=== PATIENT | female | born 1965 | race Caucasian/White ===

== ENCOUNTER 2019-09-16 18:20 | Inpatient (IN) | payer MEDICAID ==
[~2019-09-16] VITALS: Ht 162.6 cm; Wt 164.2 kg
[2019-09-16 18:23] VITALS: BP_SYST 164
[2019-09-16] MEDS ORDERED: IPRATROPIUM/ALBUTEROL SULFATE 3 ML AMPUL.NEB (DUONEB) INH ONE (18:30)
[2019-09-16 19:08] LABS: BASOPHILS % (AUTO) 0.3 % (0.0-2.0); EOSINOPHILS % (AUTO) 0.2 % (0.0-4.0); HEMATOCRIT 31.1 % (36-48); HEMOGLOBIN 9.5 g/dL (12.0-16.0); LYMPHOCYTES # (AUTO) 1.3 K/uL (1.0-5.5); LYMPHOCYTES % (AUTO) 12.7 % (20.5-51.5); MEAN CORPUSCULAR HEMOGLOBIN 31 pg (27-31); MEAN CORPUSCULAR HGB CONC 31 % (32-36); MEAN CORPUSCULAR VOLUME 100 fL (79.0-98.0); MONOCYTES # (AUTO) 0.9 K/uL (0.0-1.0); MONOCYTES % (AUTO) 9.1 % (1.7-9.3); NEUTROPHILS # (AUTO) 7.8 K/uL (1.8-7.7); NEUTROPHILS % (AUTO) 77.7 % (40.0-70.0); PLATELET COUNT (AUTO) 215 K/uL (130-430); RED BLOOD CELL COUNT(AUTO) 3.11 MIL/uL (4.2-6.2); RED CELL DISTRIBUTION WIDTH 15.3 % (9.0-15.0)
[2019-09-16] MEDS ORDERED: PIPERACILLIN/TAZO 3.375 GM in NS 50 ML IV ONE (19:15)
[2019-09-16 19:29] LABS: BILIRUBIN,URINE 1+ (NEGATIVE); BLOOD, URINE 3+ (NEGATIVE); CLARITY/URINE CLOUDY (CLEAR); COLOR,URINE BROWN (YELLOW); GLUCOSE,URINE NEGATIVE (NEGATIVE); KETONES,URINE NEGATIVE (NEGATIVE); LEUKOCYTE ESTERASE ,URINE TRACE (NEGATIVE); NITRITE, URINE NEGATIVE (NEGATIVE); PH,URINE 6.5 (5.0-8.0); PROTEIN URINE 3+ (NEGATIVE); UROBILINOGEN,URINE 0.2 (0.2-1.0)
[2019-09-16 19:33] LABS: PROTHROMBIN TIME 9.8 SECS (9.5-12.5)
[2019-09-16 19:34] LABS: CALCIUM 8.2 mg/dL (8.4-11.0); CREATININE 1.98 mg/dL (0.55-1.30)
[2019-09-16 19:40] LABS: ALBUMIN 2.9 g/dL (3.4-4.8); TOTAL BILIRUBIN 0.1 mg/dL (0.0-1.0)
[2019-09-16] MEDS ORDERED: PIPERACILLIN/TAZOBACTAM 3.375 GM/VIAL (ZOSYN) IV ONE ×2 (20:05→20:09)
[2019-09-16 20:35] LABS: BACTERIA,URINE MODERATE /HPF (None Seen); MUCUS,URINE None Seen /LPF (None Seen); RBC,URINE >100 /HPF (0-3); URINE AMORPHOUS URATE 2+ /HPF (None Seen); YEAST,URINE Moderate /HPF (None Seen)
[2019-09-16] MEDS ORDERED: METOCLOPRAMIDE HCL 10 MG/2 ML VIAL IVP PRN (21:15)
[2019-09-16] MEDS ORDERED: ONDANSETRON HCL 4 MG/2 ML VIAL IVP PRN (21:15)
[2019-09-16] MEDS: IPRATROPIUM BROM 0.5 MG/2.5 ML VIAL.NEB (ATROVENT) INH SCH (23:00)
[2019-09-16] MEDS: ALBUTEROL SULFATE 0.083% 2.5 MG/3 ML VIAL.NEB INH SCH (23:00)
[2019-09-16] MEDS ORDERED: GABA-531 PO (23:07)
[2019-09-16] MEDS ORDERED: LEVO75TA7 PO (23:07)
[2019-09-16] MEDS ORDERED: BUDE0.5A IH (23:07)
[2019-09-16] MEDS ORDERED: ACET-73 PO (23:07)
[2019-09-17] VITALS (19 sets, daily range): BP systolic 86–150
[2019-09-17] MEDS: MORPHINE 2 MG/ML INJ. SYRINGE IVP PRN ×2 (00:08→05:06)
[2019-09-17] MEDS: ALBUTEROL SULFATE 0.083% 2.5 MG/3 ML VIAL.NEB INH SCH ×6 (02:30→23:00)
[2019-09-17] MEDS: IPRATROPIUM BROM 0.5 MG/2.5 ML VIAL.NEB (ATROVENT) INH SCH ×6 (02:30→23:00)
[2019-09-17] MEDS: PIPERACILLIN/TAZO 3.375/DEX-IS 50 ML IV SCH ×5 (02:31→23:24)
[2019-09-17] MEDS ORDERED: PIPERACILLIN/TAZOBACTAM 3.375 GM/VIAL (ZOSYN) IV ONE ×2 (02:39→06:23)
[2019-09-17] MEDS ORDERED: LORA10TA7 PO (06:36)
[2019-09-17] MEDS ORDERED: HYDR-4272 PO (06:36)
[2019-09-17] MEDS ORDERED: ASCO500T20 PO (06:36)
[2019-09-17] MEDS ORDERED: CYAN100010 PO (06:36)
[2019-09-17] MEDS ORDERED: POTA20TA83 PO (06:36)
[2019-09-17] MEDS ORDERED: DULO60CA41 PO (06:36)
[2019-09-17] MEDS ORDERED: ALBU2.5V7 INH (06:36)
[2019-09-17] MEDS ORDERED: SENN8.6T19 PO (06:36)
[2019-09-17] MEDS ORDERED: PATANOL OP (06:36)
[2019-09-17] MEDS ORDERED: FURO-149 PO (06:36)
[2019-09-17] MEDS ORDERED: ALPR0.5T PO (06:36)
[2019-09-17] MEDS ORDERED: MOM PO (06:36)
[2019-09-17] MEDS ORDERED: FAMO40OR4 PO (06:36)
[2019-09-17] MEDS ORDERED: LOVI40 SQ (06:36)
[2019-09-17] MEDS ORDERED: ACET500V PO (06:36)
[2019-09-17] MEDS ORDERED: MYL80 PO (06:36)
[2019-09-17] MEDS ORDERED: MELA3TAB64 PO (06:36)
[2019-09-17] MEDS ORDERED: ACETAMINOPHEN 500 MG TABLET PO SCH (09:15)
[2019-09-17] MEDS ORDERED: LEVOTHYROXINE SODIUM 0.075 MG TABLET PO ONE (09:30)
[2019-09-17] MEDS ORDERED: DULoxetine HCL 30 MG CAPSULE.DR (CYMBALTA) PO ONE (09:30)
[2019-09-17] MEDS ORDERED: GABAPENTIN 300 MG CAPSULE PO ONE (09:30)
[2019-09-17] MEDS: DULoxetine HCL 30 MG CAPSULE.DR (CYMBALTA) PO SCH (10:15)
[2019-09-17] MEDS: VANCOMYCIN HCL 1,500 MG in NS 250 ML IV SCH (10:17)
[2019-09-17] MEDS: 0.45% NACL 1,000 ML IV SCH ×2 (10:30→23:12)
[2019-09-17] MEDS ORDERED: ENOXAPARIN SODIUM 120 MG/0.8 ML SYRINGE SUBCUT ONE (13:30)
[2019-09-17] MEDS ORDERED: *LOVENOX 1MG/KG Q24H/PHARMACY XX PRN (15:00)
[2019-09-17] MEDS ORDERED: FUROSEMIDE 40 MG TABLET PO SCH (21:00)
[2019-09-17] MEDS ORDERED: ENOXAPARIN SODIUM 120 MG/0.8 ML SYRINGE SUBCUT SCH (23:00)
[2019-09-17] MEDS: BUDESONIDE 0.5 MG/2 ML AMPUL.NEB IH SCH (23:12)
[2019-09-17] MEDS: GABAPENTIN 300 MG CAPSULE PO SCH (23:16)
[2019-09-18] VITALS (27 sets, daily range): BP systolic 78–154
[2019-09-18] MEDS: ACETAMINOPHEN 325 MG TABLET PO PRN ×2 (00:46→09:31)
[2019-09-18] MEDS: ALBUTEROL SULFATE 0.083% 2.5 MG/3 ML VIAL.NEB INH SCH ×6 (03:00→23:18)
[2019-09-18] MEDS: IPRATROPIUM BROM 0.5 MG/2.5 ML VIAL.NEB (ATROVENT) INH SCH ×6 (03:00→23:18)
[2019-09-18] MEDS ORDERED: NOREPINEPHRINE BITARTRATE 4 MG in NS 246 ML IV PRN (04:30)
[2019-09-18] MEDS ORDERED: NS 500 ML IV SCH (05:00)
[2019-09-18 05:53] LABS: BASOPHILS % (AUTO) 0.3 % (0.0-2.0); EOSINOPHILS % (AUTO) 0.2 % (0.0-4.0); HEMATOCRIT 24.6 % (36-48); HEMOGLOBIN 7.8 g/dL (12.0-16.0); LYMPHOCYTES # (AUTO) 1.3 K/uL (1.0-5.5); LYMPHOCYTES % (AUTO) 16.9 % (20.5-51.5); MEAN CORPUSCULAR HEMOGLOBIN 30 pg (27-31); MEAN CORPUSCULAR HGB CONC 32 % (32-36); MEAN CORPUSCULAR VOLUME 96 fL (79.0-98.0); MONOCYTES # (AUTO) 0.8 K/uL (0.0-1.0); MONOCYTES % (AUTO) 10.5 % (1.7-9.3); NEUTROPHILS # (AUTO) 5.6 K/uL (1.8-7.7); NEUTROPHILS % (AUTO) 72.1 % (40.0-70.0); PLATELET COUNT (AUTO) 169 K/uL (130-430); RED BLOOD CELL COUNT(AUTO) 2.57 MIL/uL (4.2-6.2); RED CELL DISTRIBUTION WIDTH 14.6 % (9.0-15.0); WHITE BLOOD COUNT (AUTO) 7.8 K/uL (4.8-10.8)
[2019-09-18 06:16] LABS: ALBUMIN 2.3 g/dL (3.4-4.8); CREATININE 3.26 mg/dL (0.55-1.30); POTASSIUM 3.3 mmol/L (3.5-5.1); TOTAL BILIRUBIN 0.3 mg/dL (0.0-1.0)
[2019-09-18] MEDS: PIPERACILLIN/TAZO 3.375/DEX-IS 50 ML IV SCH ×3 (07:47→17:40)
[2019-09-18] MEDS: 0.45% NACL 1,000 ML IV SCH ×2 (07:48→14:00)
[2019-09-18] MEDS: BUDESONIDE 0.5 MG/2 ML AMPUL.NEB IH SCH ×2 (08:02→20:08)
[2019-09-18] MEDS ORDERED: ENOXAPARIN SODIUM 80 MG/0.8 ML SYRINGE SUBCUT SCH (09:00)
[2019-09-18] MEDS ORDERED: ENOXAPARIN SODIUM 40 MG/0.4 ML SYRINGE SQ SCH (09:00)
[2019-09-18] MEDS: LEVOTHYROXINE SODIUM 0.075 MG TABLET PO SCH (09:21)
[2019-09-18] MEDS: CYANOCOBALAMIN 1000 mCg TABLET PO SCH (09:21)
[2019-09-18] MEDS: GABAPENTIN 300 MG CAPSULE PO SCH ×2 (09:22→21:00)
[2019-09-18] MEDS: VANCOMYCIN HCL 1,500 MG in NS 250 ML IV SCH (09:23)
[2019-09-18] MEDS ORDERED: *HEPARIN PER PHARMACY XX PRN (09:30)
[2019-09-18] MEDS ORDERED: HEPARIN SODIUM,PORCINE 5000 UNITS/ML VIAL IV ONE (10:30)
[2019-09-18] MEDS ORDERED: HEPARIN SODIUM,PORCINE 3000 UNITS/0.6 ML BOLUS IVP PRN (10:30)
[2019-09-18] MEDS: HEPARIN 25,000 UNITS in 250 ML PREMIX IV PRN (13:52)
[2019-09-18] MEDS: MORPHINE 2 MG/ML INJ. SYRINGE IVP PRN (16:50)
[2019-09-19] VITALS (29 sets, daily range): BP systolic 96–158
[2019-09-19] MEDS: 0.45% NACL 1,000 ML IV SCH ×4 (00:27→23:53)
[2019-09-19] MEDS: PIPERACILLIN/TAZO 3.375/DEX-IS 50 ML IV SCH ×5 (00:29→23:53)
[2019-09-19 05:59] LABS: BASOPHILS % (AUTO) 0.3 % (0.0-2.0); EOSINOPHILS % (AUTO) 0.1 % (0.0-4.0); HEMATOCRIT 22.5 % (36-48); HEMOGLOBIN 7.2 g/dL (12.0-16.0); LYMPHOCYTES # (AUTO) 1.8 K/uL (1.0-5.5); MONOCYTES # (AUTO) 0.6 K/uL (0.0-1.0); MONOCYTES % (AUTO) 8.6 % (1.7-9.3); NEUTROPHILS # (AUTO) 4.5 K/uL (1.8-7.7); RED CELL DISTRIBUTION WIDTH 14.7 % (9.0-15.0); WHITE BLOOD COUNT (AUTO) 6.9 K/uL (4.8-10.8)
[2019-09-19 06:25] LABS: LYMPHOCYTES % (AUTO) 26.2 % (20.5-51.5); MEAN CORPUSCULAR HEMOGLOBIN 31 pg (27-31); MEAN CORPUSCULAR HGB CONC 32 % (32-36); MEAN CORPUSCULAR VOLUME 96 fL (79.0-98.0); NEUTROPHILS % (AUTO) 64.8 % (40.0-70.0); PLATELET COUNT (AUTO) 149 K/uL (130-430); RED BLOOD CELL COUNT(AUTO) 2.36 MIL/uL (4.2-6.2)
[2019-09-19 06:42] LABS: ALBUMIN 2.1 g/dL (3.4-4.8); CREATININE 4.44 mg/dL (0.55-1.30); POTASSIUM 3.2 mmol/L (3.5-5.1); TOTAL BILIRUBIN 0.4 mg/dL (0.0-1.0)
[2019-09-19 06:47] LABS: CALCIUM 6.4 mg/dL (8.4-11.0)
[2019-09-19] MEDS: IPRATROPIUM BROM 0.5 MG/2.5 ML VIAL.NEB (ATROVENT) INH SCH ×5 (08:02→23:13)
[2019-09-19] MEDS: ALBUTEROL SULFATE 0.083% 2.5 MG/3 ML VIAL.NEB INH SCH ×5 (08:02→23:13)
[2019-09-19] MEDS: BUDESONIDE 0.5 MG/2 ML AMPUL.NEB IH SCH ×2 (08:30→20:22)
[2019-09-19] MEDS: CYANOCOBALAMIN 1000 mCg TABLET PO SCH (08:43)
[2019-09-19] MEDS: LEVOTHYROXINE SODIUM 0.075 MG TABLET PO SCH (08:44)
[2019-09-19] MEDS: GABAPENTIN 300 MG CAPSULE PO SCH ×2 (08:44→21:09)
[2019-09-19] MEDS: DULoxetine HCL 30 MG CAPSULE.DR (CYMBALTA) PO SCH (08:44)
[2019-09-19] MEDS: MORPHINE 2 MG/ML INJ. SYRINGE IVP PRN ×2 (08:45→21:09)
[2019-09-19] MEDS ORDERED: POTASSIUM CHLORIDE 20 MEQ in NS 250 ML IV ONE (10:00)
[2019-09-19] MEDS ORDERED: VANCOMYCIN HCL 1,250 MG in NS 250 ML IV SCH (10:00)
[2019-09-19] MEDS ORDERED: methylPREDNISolone SOD SUCC 40 MG/ML VIAL IVP ONE (10:00)
[2019-09-19] MEDS: HEPARIN 25,000 UNITS in 250 ML PREMIX IV PRN (13:51)
[2019-09-19] MEDS: IPRATROPIUM BROM 0.5 MG/2.5 ML VIAL.NEB (ATROVENT) INH PRN (17:21)
[2019-09-19] MEDS: ALBUTEROL SULFATE 0.083% 2.5 MG/3 ML VIAL.NEB INH PRN (17:21)
[2019-09-19] MEDS ORDERED: CALCIUM GLUCONATE 1 GM in NS 100 ML IV ONE (20:15)
[2019-09-19] MEDS ORDERED: CALCIUM GLUCONATE 1 GM/10 ML VIAL ONE (21:00)
[2019-09-20] VITALS (20 sets, daily range): BP systolic 111–145
[2019-09-20] MEDS: ALBUTEROL SULFATE 0.083% 2.5 MG/3 ML VIAL.NEB INH SCH ×7 (04:07→23:00)
[2019-09-20] MEDS: IPRATROPIUM BROM 0.5 MG/2.5 ML VIAL.NEB (ATROVENT) INH SCH ×7 (04:08→23:00)
[2019-09-20] MEDS: LEVOTHYROXINE SODIUM 0.075 MG TABLET PO SCH (06:29)
[2019-09-20] MEDS: PIPERACILLIN/TAZO 3.375/DEX-IS 50 ML IV SCH ×4 (06:29→23:55)
[2019-09-20 06:35] LABS: BASOPHILS % (AUTO) 0.2 % (0.0-2.0); LYMPHOCYTES # (AUTO) 1.5 K/uL (1.0-5.5); LYMPHOCYTES % (AUTO) 15.8 % (20.5-51.5); MEAN CORPUSCULAR HEMOGLOBIN 31 pg (27-31); MEAN CORPUSCULAR HGB CONC 32 % (32-36); MEAN CORPUSCULAR VOLUME 96 fL (79.0-98.0); MONOCYTES # (AUTO) 0.9 K/uL (0.0-1.0); MONOCYTES % (AUTO) 9.6 % (1.7-9.3); NEUTROPHILS % (AUTO) 74.4 % (40.0-70.0); PLATELET COUNT (AUTO) 150 K/uL (130-430); RED BLOOD CELL COUNT(AUTO) 2.61 MIL/uL (4.2-6.2); RED CELL DISTRIBUTION WIDTH 14.6 % (9.0-15.0); WHITE BLOOD COUNT (AUTO) 9.4 K/uL (4.8-10.8)
[2019-09-20 06:55] LABS: ALBUMIN 2.2 g/dL (3.4-4.8); CREATININE 5.27 mg/dL (0.55-1.30); POTASSIUM 3.8 mmol/L (3.5-5.1); TOTAL BILIRUBIN 0.4 mg/dL (0.0-1.0)
[2019-09-20 07:05] LABS: CALCIUM 6.8 mg/dL (8.4-11.0)
[2019-09-20] MEDS: 0.45% NACL 1,000 ML IV SCH ×2 (08:00→18:45)
[2019-09-20] MEDS: BUDESONIDE 0.5 MG/2 ML AMPUL.NEB IH SCH ×2 (08:08→19:52)
[2019-09-20 08:15] LABS: TOTAL IRON BIND. CAPACITY 164 ug/dL (250-450)
[2019-09-20] MEDS ORDERED: CALCIUM GLUCONATE 2 GM in NS 100 ML IV ONE (08:15)
[2019-09-20] MEDS: GABAPENTIN 300 MG CAPSULE PO SCH ×2 (10:18→20:43)
[2019-09-20] MEDS: CYANOCOBALAMIN 1000 mCg TABLET PO SCH (10:18)
[2019-09-20] MEDS: DULoxetine HCL 30 MG CAPSULE.DR (CYMBALTA) PO SCH (10:18)
[2019-09-20] MEDS: MORPHINE 2 MG/ML INJ. SYRINGE IVP PRN ×2 (11:40→20:45)
[2019-09-20] MEDS: EPOETIN ALFA 10,000 UNITS/ML VIAL SUBCUT SCH (18:42)
[2019-09-20] MEDS: HEPARIN 25,000 UNITS in 250 ML PREMIX IV PRN (18:44)
[2019-09-21] VITALS: BP_SYST 128
[2019-09-21] MEDS: HEPARIN SODIUM,PORCINE 2000 UNITS/0.4 ML BOLUS IVP PRN (00:17)
[2019-09-21] MEDS: HEPARIN 25,000 UNITS in 250 ML PREMIX IV PRN ×2 (00:22→00:26)
[2019-09-21] MEDS: MORPHINE 2 MG/ML INJ. SYRINGE IVP PRN ×2 (00:23→06:09)
[2019-09-21] MEDS: ALBUTEROL SULFATE 0.083% 2.5 MG/3 ML VIAL.NEB INH SCH ×6 (03:00→23:30)
[2019-09-21] MEDS: IPRATROPIUM BROM 0.5 MG/2.5 ML VIAL.NEB (ATROVENT) INH SCH ×6 (03:00→23:31)
[2019-09-21] MEDS: 0.45% NACL 1,000 ML IV SCH ×4 (06:09→22:15)
[2019-09-21] MEDS: LEVOTHYROXINE SODIUM 0.075 MG TABLET PO SCH (06:10)
[2019-09-21] MEDS: PIPERACILLIN/TAZO 3.375/DEX-IS 50 ML IV SCH ×4 (06:12→23:37)
[2019-09-21] MEDS: BUDESONIDE 0.5 MG/2 ML AMPUL.NEB IH SCH ×2 (07:32→19:55)
[2019-09-21 07:48] LABS: BASOPHILS % (AUTO) 0.3 % (0.0-2.0); EOSINOPHILS % (AUTO) 0.2 % (0.0-4.0); HEMATOCRIT 24.1 % (36-48); HEMOGLOBIN 7.7 g/dL (12.0-16.0); LYMPHOCYTES # (AUTO) 2.8 K/uL (1.0-5.5); LYMPHOCYTES % (AUTO) 41.4 % (20.5-51.5); MEAN CORPUSCULAR HEMOGLOBIN 31 pg (27-31); MEAN CORPUSCULAR HGB CONC 32 % (32-36); MEAN CORPUSCULAR VOLUME 97 fL (79.0-98.0); MONOCYTES # (AUTO) 0.6 K/uL (0.0-1.0); MONOCYTES % (AUTO) 9.2 % (1.7-9.3); NEUTROPHILS # (AUTO) 3.3 K/uL (1.8-7.7); NEUTROPHILS % (AUTO) 48.9 % (40.0-70.0); PLATELET COUNT (AUTO) 141 K/uL (130-430); RED CELL DISTRIBUTION WIDTH 14.7 % (9.0-15.0); WHITE BLOOD COUNT (AUTO) 6.8 K/uL (4.8-10.8)
[2019-09-21 08:11] LABS: ALBUMIN 2.1 g/dL (3.4-4.8); CALCIUM 7.5 mg/dL (8.4-11.0); CREATININE 5.53 mg/dL (0.55-1.30); TOTAL BILIRUBIN 0.4 mg/dL (0.0-1.0)
[2019-09-21 08:47] LABS: POTASSIUM 4.3 mmol/L (3.5-5.1)
[2019-09-21] MEDS ORDERED: COMMUNICATION ORDER XX ONE ×2 (09:30→12:00)
[2019-09-21] MEDS ORDERED: VANCOMYCIN HCL 1,500 MG in NS 250 ML IV SCH (10:00)
[2019-09-21] MEDS ORDERED: LIDOCAINE 1% 10 MG/ML, 20 ML MDV ONE (11:00)
[2019-09-21] MEDS ORDERED: NS IRRIG SOLN 1000 ML IR ONE (11:00)
[2019-09-21] MEDS ORDERED: fentaNYL CITRATE/PF 100 MCG/2 ML AMP IVP PRN ×2 (11:00)
[2019-09-21] MEDS ORDERED: CEFAZOLIN 2 GM IVPB PREMIX 50 ML IV ONE (11:00)
[2019-09-21] MEDS ORDERED: MIDAZOLAM HCL 5 MG/ML VIAL (VERSED) IV ONE (11:00)
[2019-09-21] MEDS ORDERED: 0.45% NACL 1,000 ML BAG IV ONE (11:00)
[2019-09-21] MEDS ORDERED: PROPOFOL 200MG/ 20ML VIAL (DIPRIVAN) IV ONE (11:00)
[2019-09-21] MEDS ORDERED: NS 100 ML BAG ONE (11:00)
[2019-09-21 13:00] VITALS: BP_SYST 145
[2019-09-21 15:43] VITALS: BP_SYST 151
[2019-09-21] MEDS: CYANOCOBALAMIN 1000 mCg TABLET PO SCH (17:11)
[2019-09-21] MEDS: DULoxetine HCL 30 MG CAPSULE.DR (CYMBALTA) PO SCH (17:11)
[2019-09-21] MEDS: GABAPENTIN 300 MG CAPSULE PO SCH ×2 (17:11→22:11)
[2019-09-21 20:00] VITALS: BP_SYST 105
[2019-09-22] MEDS: HEPARIN 25,000 UNITS in 250 ML PREMIX IV PRN ×2 (00:34→21:19)
[2019-09-22] MEDS: HEPARIN SODIUM,PORCINE 2000 UNITS/0.4 ML BOLUS IVP PRN (00:35)
[2019-09-22] MEDS: ALBUTEROL SULFATE 0.083% 2.5 MG/3 ML VIAL.NEB INH SCH ×6 (02:10→23:12)
[2019-09-22] MEDS: IPRATROPIUM BROM 0.5 MG/2.5 ML VIAL.NEB (ATROVENT) INH SCH ×6 (02:10→23:12)
[2019-09-22 02:15] VITALS: BP_SYST 96
[2019-09-22] MEDS: LEVOTHYROXINE SODIUM 0.075 MG TABLET PO SCH (06:43)
[2019-09-22] MEDS: PIPERACILLIN/TAZO 3.375/DEX-IS 50 ML IV SCH ×3 (06:43→21:12)
[2019-09-22] MEDS: 0.45% NACL 1,000 ML IV SCH ×2 (06:48→15:52)
[2019-09-22] MEDS: BUDESONIDE 0.5 MG/2 ML AMPUL.NEB IH SCH ×2 (07:32→20:08)
[2019-09-22 08:12] LABS: BASOPHILS % (AUTO) 0.3 % (0.0-2.0); EOSINOPHILS % (AUTO) 0.3 % (0.0-4.0); HEMOGLOBIN 8.2 g/dL (12.0-16.0); LYMPHOCYTES # (AUTO) 3.7 K/uL (1.0-5.5); LYMPHOCYTES % (AUTO) 43.4 % (20.5-51.5); MEAN CORPUSCULAR HEMOGLOBIN 30 pg (27-31); MEAN CORPUSCULAR HGB CONC 31 % (32-36); MEAN CORPUSCULAR VOLUME 97 fL (79.0-98.0); MONOCYTES # (AUTO) 0.9 K/uL (0.0-1.0); MONOCYTES % (AUTO) 10.2 % (1.7-9.3); NEUTROPHILS # (AUTO) 3.9 K/uL (1.8-7.7); NEUTROPHILS % (AUTO) 45.8 % (40.0-70.0); PLATELET COUNT (AUTO) 161 K/uL (130-430); RED BLOOD CELL COUNT(AUTO) 2.69 MIL/uL (4.2-6.2); WHITE BLOOD COUNT (AUTO) 8.5 K/uL (4.8-10.8)
[2019-09-22 08:30] LABS: CALCIUM 7.1 mg/dL (8.4-11.0); CREATININE 6.02 mg/dL (0.55-1.30); PHOSPHORUS 6.1 mg/dL (2.7-4.5); POTASSIUM 3.7 mmol/L (3.5-5.1); VANCOMYCIN,RANDOM 26.5 ug/mL
[2019-09-22] MEDS: DULoxetine HCL 30 MG CAPSULE.DR (CYMBALTA) PO SCH (09:39)
[2019-09-22] MEDS: CYANOCOBALAMIN 1000 mCg TABLET PO SCH (09:39)
[2019-09-22] MEDS: GABAPENTIN 300 MG CAPSULE PO SCH ×2 (09:39→21:12)
[2019-09-22 10:31] LABS: ERYTHROCYTE SEDIMENTATION RATE 86 MM/HR (0-20)
[2019-09-22 12:02] VITALS: BP_SYST 116
[2019-09-22 16:00] VITALS: BP_SYST 120
[2019-09-22] MEDS ORDERED: COMMUNICATION ORDER XX ONE (18:30)
[2019-09-22] MEDS ORDERED: HEPARIN SODIUM,PORCINE 5000 UNITS/ML VIAL MC PRN ×2 (18:45)
[2019-09-22 20:03] VITALS: BP_SYST 127
[2019-09-23] VITALS (7 sets, daily range): BP systolic 120–146
[2019-09-23] MEDS: PIPERACILLIN/TAZO 3.375/DEX-IS 50 ML IV SCH ×3 (00:48→12:00)
[2019-09-23] MEDS: 0.45% NACL 1,000 ML IV SCH ×3 (00:48→16:30)
[2019-09-23] MEDS: ALBUTEROL SULFATE 0.083% 2.5 MG/3 ML VIAL.NEB INH SCH ×5 (03:39→19:40)
[2019-09-23] MEDS: IPRATROPIUM BROM 0.5 MG/2.5 ML VIAL.NEB (ATROVENT) INH SCH ×5 (03:40→19:40)
[2019-09-23] MEDS: LEVOTHYROXINE SODIUM 0.075 MG TABLET PO SCH (06:22)
[2019-09-23 07:50] LABS: BASOPHILS % (AUTO) 0.3 % (0.0-2.0); EOSINOPHILS % (AUTO) 0.6 % (0.0-4.0); HEMATOCRIT 24.6 % (36-48); HEMOGLOBIN 7.7 g/dL (12.0-16.0); LYMPHOCYTES # (AUTO) 2.5 K/uL (1.0-5.5); LYMPHOCYTES % (AUTO) 32.5 % (20.5-51.5); MEAN CORPUSCULAR HEMOGLOBIN 30 pg (27-31); MEAN CORPUSCULAR HGB CONC 31 % (32-36); MEAN CORPUSCULAR VOLUME 96 fL (79.0-98.0); MONOCYTES # (AUTO) 0.6 K/uL (0.0-1.0); MONOCYTES % (AUTO) 8.4 % (1.7-9.3); NEUTROPHILS # (AUTO) 4.4 K/uL (1.8-7.7); NEUTROPHILS % (AUTO) 58.2 % (40.0-70.0); PLATELET COUNT (AUTO) 174 K/uL (130-430); RED BLOOD CELL COUNT(AUTO) 2.57 MIL/uL (4.2-6.2); WHITE BLOOD COUNT (AUTO) 7.6 K/uL (4.8-10.8)
[2019-09-23] MEDS: BUDESONIDE 0.5 MG/2 ML AMPUL.NEB IH SCH ×2 (08:02→19:40)
[2019-09-23 08:55] LABS: ERYTHROCYTE SEDIMENTATION RATE 73 MM/HR (0-20)
[2019-09-23 10:14] LABS: ALBUMIN 2.2 g/dL (3.4-4.8); CREATININE 4.79 mg/dL (0.55-1.30); PHOSPHORUS 4.7 mg/dL (2.7-4.5); POTASSIUM 3.4 mmol/L (3.5-5.1); THYROID STIMULATING HORMONE 4.04 uIu/mL (0.36-3.74); TOTAL BILIRUBIN 0.4 mg/dL (0.0-1.0)
[2019-09-23 10:16] LABS: CALCIUM 6.9 mg/dL (8.4-11.0)
[2019-09-23] MEDS: GABAPENTIN 300 MG CAPSULE PO SCH ×2 (10:20→20:38)
[2019-09-23] MEDS: DULoxetine HCL 30 MG CAPSULE.DR (CYMBALTA) PO SCH (10:20)
[2019-09-23] MEDS: CYANOCOBALAMIN 1000 mCg TABLET PO SCH (10:20)
[2019-09-23] MEDS: HEPARIN 25,000 UNITS in 250 ML PREMIX IV PRN ×2 (10:23→18:38)
[2019-09-23 10:30] LABS: C-REACTIVE PROTEIN QUANT 2.2 mg/dL (0-0.5); VANCOMYCIN,RANDOM 18.3 ug/mL
[2019-09-23] MEDS ORDERED: HEPARIN SODIUM,PORCINE 5000 UNITS/ML VIAL IVP ONE (17:00)
[2019-09-23] MEDS ORDERED: WARFARIN SODIUM 5 MG TABLET PO SCH (18:00)
[2019-09-23] MEDS: HEPARIN SODIUM,PORCINE 2000 UNITS/0.4 ML BOLUS IVP PRN (18:35)
[2019-09-23] MEDS: EPOETIN ALFA 10,000 UNITS/ML VIAL SUBCUT SCH (19:49)
[2019-09-24] VITALS: BP_SYST 127
[2019-09-24] MEDS: HEPARIN 25,000 UNITS in 250 ML PREMIX IV PRN ×2 (02:12→12:47)
[2019-09-24] MEDS: 0.45% NACL 1,000 ML IV SCH ×2 (02:36→23:43)
[2019-09-24] MEDS: IPRATROPIUM BROM 0.5 MG/2.5 ML VIAL.NEB (ATROVENT) INH SCH ×6 (03:00→23:00)
[2019-09-24] MEDS: ALBUTEROL SULFATE 0.083% 2.5 MG/3 ML VIAL.NEB INH SCH ×6 (03:00→23:00)
[2019-09-24] MEDS: LEVOTHYROXINE SODIUM 0.075 MG TABLET PO SCH (06:22)
[2019-09-24 07:20] LABS: BASOPHILS % (AUTO) 0.2 % (0.0-2.0); EOSINOPHILS # (AUTO) 0.1 K/uL (0.0-0.4); HEMATOCRIT 24.9 % (36-48); HEMOGLOBIN 7.9 g/dL (12.0-16.0); LYMPHOCYTES # (AUTO) 2.6 K/uL (1.0-5.5); LYMPHOCYTES % (AUTO) 32.2 % (20.5-51.5); MEAN CORPUSCULAR HEMOGLOBIN 30 pg (27-31); MEAN CORPUSCULAR HGB CONC 32 % (32-36); MEAN CORPUSCULAR VOLUME 95 fL (79.0-98.0); MONOCYTES # (AUTO) 0.8 K/uL (0.0-1.0); MONOCYTES % (AUTO) 9.9 % (1.7-9.3); NEUTROPHILS # (AUTO) 4.5 K/uL (1.8-7.7); NEUTROPHILS % (AUTO) 56.7 % (40.0-70.0); PLATELET COUNT (AUTO) 208 K/uL (130-430); RED BLOOD CELL COUNT(AUTO) 2.61 MIL/uL (4.2-6.2); WHITE BLOOD COUNT (AUTO) 7.9 K/uL (4.8-10.8)
[2019-09-24 07:43] LABS: INR 1.1 (0.8-1.2)
[2019-09-24 07:45] VITALS: BP_SYST 155
[2019-09-24] MEDS: BUDESONIDE 0.5 MG/2 ML AMPUL.NEB IH SCH ×2 (07:47→19:52)
[2019-09-24 08:26] LABS: CALCIUM 7.8 mg/dL (8.4-11.0); CREATININE 3.59 mg/dL (0.55-1.30); POTASSIUM 3.3 mmol/L (3.5-5.1); VANCOMYCIN,RANDOM 13.2 ug/mL
[2019-09-24] MEDS: DULoxetine HCL 30 MG CAPSULE.DR (CYMBALTA) PO SCH (08:43)
[2019-09-24] MEDS: CYANOCOBALAMIN 1000 mCg TABLET PO SCH (08:44)
[2019-09-24] MEDS: GABAPENTIN 300 MG CAPSULE PO SCH ×2 (08:44→20:26)
[2019-09-24] MEDS ORDERED: POTASSIUM CHLORIDE 20 MEQ/PKT PACKET PO ONE (09:15)
[2019-09-24 11:46] VITALS: BP_SYST 123
[2019-09-24] MEDS ORDERED: VANCOMYCIN HCL 1,500 MG in NS 250 ML IV SCH (13:00)
[2019-09-24] MEDS: WARFARIN SODIUM 7.5 MG TABLET PO SCH (18:06)
[2019-09-24 20:00] VITALS: BP_SYST 146
[2019-09-25] MEDS: HEPARIN 25,000 UNITS in 250 ML PREMIX IV PRN ×2 (00:52→17:42)
[2019-09-25 01:05] VITALS: BP_SYST 144
[2019-09-25] MEDS: IPRATROPIUM BROM 0.5 MG/2.5 ML VIAL.NEB (ATROVENT) INH SCH ×3 (03:00→21:56)
[2019-09-25] MEDS: ALBUTEROL SULFATE 0.083% 2.5 MG/3 ML VIAL.NEB INH SCH ×3 (03:00→21:56)
[2019-09-25] MEDS: LEVOTHYROXINE SODIUM 0.075 MG TABLET PO SCH (06:05)
[2019-09-25 07:22] LABS: BASOPHILS # (AUTO) 0.1 K/uL (0.0-0.2); BASOPHILS % (AUTO) 0.6 % (0.0-2.0); EOSINOPHILS # (AUTO) 0.1 K/uL (0.0-0.4); EOSINOPHILS % (AUTO) 1.4 % (0.0-4.0); HEMATOCRIT 26.6 % (36-48); HEMOGLOBIN 8.2 g/dL (12.0-16.0); LYMPHOCYTES # (AUTO) 2.6 K/uL (1.0-5.5); LYMPHOCYTES % (AUTO) 25.7 % (20.5-51.5); MEAN CORPUSCULAR HEMOGLOBIN 30 pg (27-31); MEAN CORPUSCULAR HGB CONC 31 % (32-36); MEAN CORPUSCULAR VOLUME 97 fL (79.0-98.0); MONOCYTES % (AUTO) 10.4 % (1.7-9.3); NEUTROPHILS # (AUTO) 6.2 K/uL (1.8-7.7); NEUTROPHILS % (AUTO) 61.9 % (40.0-70.0); PLATELET COUNT (AUTO) 268 K/uL (130-430); RED BLOOD CELL COUNT(AUTO) 2.74 MIL/uL (4.2-6.2); RED CELL DISTRIBUTION WIDTH 15.2 % (9.0-15.0)
[2019-09-25 07:31] LABS: INR 1.3 (0.8-1.2); PROTHROMBIN TIME 12.8 SECS (9.5-12.5)
[2019-09-25 07:44] LABS: ALBUMIN 2.3 g/dL (3.4-4.8); CALCIUM 7.8 mg/dL (8.4-11.0); CREATININE 4.35 mg/dL (0.55-1.30); POTASSIUM 3.3 mmol/L (3.5-5.1); TOTAL BILIRUBIN 0.3 mg/dL (0.0-1.0)
[2019-09-25] MEDS: BUDESONIDE 0.5 MG/2 ML AMPUL.NEB IH SCH ×2 (08:12→22:23)
[2019-09-25 09:06] LABS: HEPATITIS A AB, IgM Negative (Negative); HEPATITIS B CORE AB, IgM Negative (Negative); HEPATITIS B SURFACE AG Negative (Negative)
[2019-09-25 12:00] VITALS: BP_SYST 170
[2019-09-25] MEDS: DULoxetine HCL 30 MG CAPSULE.DR (CYMBALTA) PO SCH (14:09)
[2019-09-25] MEDS: CYANOCOBALAMIN 1000 mCg TABLET PO SCH (14:09)
[2019-09-25] MEDS: GABAPENTIN 300 MG CAPSULE PO SCH ×2 (14:09→22:03)
[2019-09-25 15:16] VITALS: BP_SYST 150
[2019-09-25] MEDS: WARFARIN SODIUM 7.5 MG TABLET PO SCH (17:38)
[2019-09-25 20:00] VITALS: BP_SYST 127
[2019-09-25] MEDS ORDERED: HEPARIN SODIUM,PORCINE 5000 UNITS/ML VIAL IVP ONE (20:00)
[2019-09-25] MEDS: EPOETIN ALFA 10,000 UNITS/ML VIAL SUBCUT SCH (22:04)
[2019-09-26] VITALS: BP_SYST 146
[2019-09-26] MEDS: HEPARIN 25,000 UNITS in 250 ML PREMIX IV PRN ×2 (00:21→09:50)
[2019-09-26] MEDS: LEVOTHYROXINE SODIUM 0.075 MG TABLET PO SCH (06:09)
[2019-09-26] MEDS: 0.45% NACL 1,000 ML IV SCH (06:12)
[2019-09-26] MEDS: ALBUTEROL SULFATE 0.083% 2.5 MG/3 ML VIAL.NEB INH SCH ×5 (06:49→23:14)
[2019-09-26] MEDS: IPRATROPIUM BROM 0.5 MG/2.5 ML VIAL.NEB (ATROVENT) INH SCH ×5 (06:49→23:14)
[2019-09-26] MEDS: BUDESONIDE 0.5 MG/2 ML AMPUL.NEB IH SCH ×2 (07:06→19:38)
[2019-09-26 07:37] LABS: INR 2.1 (0.8-1.2)
[2019-09-26 07:53] LABS: ALBUMIN 2.2 g/dL (3.4-4.8); CALCIUM 7.3 mg/dL (8.4-11.0); CREATININE 3.34 mg/dL (0.55-1.30); POTASSIUM 3.1 mmol/L (3.5-5.1); TOTAL BILIRUBIN 0.2 mg/dL (0.0-1.0)
[2019-09-26 08:02] LABS: HEMATOCRIT 24.9 % (36-48); HEMOGLOBIN 7.8 g/dL (12.0-16.0); MEAN CORPUSCULAR HEMOGLOBIN 30 pg (27-31); MEAN CORPUSCULAR HGB CONC 31 % (32-36); MEAN CORPUSCULAR VOLUME 96 fL (79.0-98.0); PLATELET COUNT (AUTO) 294 K/uL (130-430); RED BLOOD CELL COUNT(AUTO) 2.58 MIL/uL (4.2-6.2); RED CELL DISTRIBUTION WIDTH 15.2 % (9.0-15.0); WHITE BLOOD COUNT (AUTO) 11.3 K/uL (4.8-10.8)
[2019-09-26 08:15] LABS: PROTHROMBIN TIME 20.5 SECS (9.5-12.5)
[2019-09-26 08:30] VITALS: BP_SYST 141
[2019-09-26 08:39] LABS: ATYPICAL LYMPHOCYTES % 0 % (0-0); BAND % (MANUAL) 2 % (0-6); BASOPHILS % (MANUAL) 0 % (0-2); EOSINOPHILS % (MANUAL) 1 % (0-7); LYMPHOCYTES % (MANUAL) 18 % (20-46); METAMYELOCYTES % 2 % (0-0); MONOCYTES % (MANUAL) 2 % (0-11); MYELOCYTES % 1 % (0-0)
[2019-09-26] MEDS: DULoxetine HCL 30 MG CAPSULE.DR (CYMBALTA) PO SCH (08:50)
[2019-09-26] MEDS: GABAPENTIN 300 MG CAPSULE PO SCH ×2 (08:50→20:28)
[2019-09-26] MEDS: CYANOCOBALAMIN 1000 mCg TABLET PO SCH (08:50)
[2019-09-26 12:30] VITALS: BP_SYST 147
[2019-09-26 15:15] VITALS: BP_SYST 147
[2019-09-26 16:31] VITALS: BP_SYST 150
[2019-09-26] MEDS ORDERED: POTASSIUM CHLORIDE 20 MEQ TAB.PRT.SR PO ONE (16:45)
[2019-09-26] MEDS: WARFARIN SODIUM 5 MG TABLET PO SCH (17:19)
[2019-09-26 20:00] VITALS: BP_SYST 149
[2019-09-27 00:31] VITALS: BP_SYST 140
[2019-09-27] MEDS: IPRATROPIUM BROM 0.5 MG/2.5 ML VIAL.NEB (ATROVENT) INH SCH ×6 (03:20→23:00)
[2019-09-27] MEDS: ALBUTEROL SULFATE 0.083% 2.5 MG/3 ML VIAL.NEB INH SCH ×6 (03:20→23:00)
[2019-09-27] MEDS: LEVOTHYROXINE SODIUM 0.075 MG TABLET PO SCH (06:25)
[2019-09-27 08:00] VITALS: BP_SYST 167
[2019-09-27 08:11] LABS: BASOPHILS % (AUTO) 0.4 % (0.0-2.0); EOSINOPHILS # (AUTO) 0.2 K/uL (0.0-0.4); EOSINOPHILS % (AUTO) 1.7 % (0.0-4.0); HEMATOCRIT 23.6 % (36-48); HEMOGLOBIN 7.5 g/dL (12.0-16.0); LYMPHOCYTES # (AUTO) 2.3 K/uL (1.0-5.5); LYMPHOCYTES % (AUTO) 21.1 % (20.5-51.5); MEAN CORPUSCULAR HEMOGLOBIN 30 pg (27-31); MEAN CORPUSCULAR HGB CONC 32 % (32-36); MEAN CORPUSCULAR VOLUME 96 fL (79.0-98.0); MONOCYTES # (AUTO) 0.9 K/uL (0.0-1.0); MONOCYTES % (AUTO) 8.3 % (1.7-9.3); NEUTROPHILS # (AUTO) 7.6 K/uL (1.8-7.7); NEUTROPHILS % (AUTO) 68.5 % (40.0-70.0); PLATELET COUNT (AUTO) 305 K/uL (130-430); RED BLOOD CELL COUNT(AUTO) 2.47 MIL/uL (4.2-6.2); RED CELL DISTRIBUTION WIDTH 15.2 % (9.0-15.0); WHITE BLOOD COUNT (AUTO) 11.1 K/uL (4.8-10.8)
[2019-09-27 08:25] LABS: INR 2.3 (0.8-1.2); PROTHROMBIN TIME 23.2 SECS (9.5-12.5)
[2019-09-27 08:27] LABS: ALBUMIN 2.2 g/dL (3.4-4.8); CALCIUM 7.1 mg/dL (8.4-11.0); CREATININE 4.45 mg/dL (0.55-1.30); POTASSIUM 3.3 mmol/L (3.5-5.1); TOTAL BILIRUBIN 0.2 mg/dL (0.0-1.0)
[2019-09-27] MEDS: BUDESONIDE 0.5 MG/2 ML AMPUL.NEB IH SCH ×2 (08:37→19:54)
[2019-09-27] MEDS: GABAPENTIN 300 MG CAPSULE PO SCH ×2 (08:37→20:51)
[2019-09-27] MEDS: CYANOCOBALAMIN 1000 mCg TABLET PO SCH (08:37)
[2019-09-27] MEDS: DULoxetine HCL 30 MG CAPSULE.DR (CYMBALTA) PO SCH (08:37)
[2019-09-27 11:57] VITALS: BP_SYST 179
[2019-09-27] MEDS ORDERED: HEPARIN SODIUM,PORCINE 5000 UNITS/ML VIAL MC PRN (13:00)
[2019-09-27 15:28] VITALS: BP_SYST 133
[2019-09-27] MEDS ORDERED: POTASSIUM CHLORIDE 20 MEQ TAB.PRT.SR PO ONE (16:15)
[2019-09-27] MEDS: cefTRIAXone 1 GM in D5W 50 ML IV SCH (17:57)
[2019-09-27] MEDS: WARFARIN SODIUM 5 MG TABLET PO SCH (17:58)
[2019-09-27] MEDS: EPOETIN ALFA 10,000 UNITS/ML VIAL SUBCUT SCH (17:59)
[2019-09-27 19:45] VITALS: BP_SYST 123
[2019-09-28] VITALS: BP_SYST 120
[2019-09-28] MEDS: LEVOTHYROXINE SODIUM 0.075 MG TABLET PO SCH (06:45)
[2019-09-28 07:07] LABS: BASOPHILS # (AUTO) 0.1 K/uL (0.0-0.2); EOSINOPHILS # (AUTO) 0.1 K/uL (0.0-0.4); EOSINOPHILS % (AUTO) 1.3 % (0.0-4.0); HEMATOCRIT 23.5 % (36-48); HEMOGLOBIN 7.4 g/dL (12.0-16.0); LYMPHOCYTES # (AUTO) 2.5 K/uL (1.0-5.5); MEAN CORPUSCULAR HEMOGLOBIN 30 pg (27-31); MEAN CORPUSCULAR HGB CONC 32 % (32-36); MEAN CORPUSCULAR VOLUME 97 fL (79.0-98.0); MONOCYTES # (AUTO) 1.2 K/uL (0.0-1.0); MONOCYTES % (AUTO) 11.5 % (1.7-9.3); NEUTROPHILS # (AUTO) 6.7 K/uL (1.8-7.7); NEUTROPHILS % (AUTO) 63.2 % (40.0-70.0); PLATELET COUNT (AUTO) 316 K/uL (130-430); RED BLOOD CELL COUNT(AUTO) 2.44 MIL/uL (4.2-6.2); RED CELL DISTRIBUTION WIDTH 15.7 % (9.0-15.0); WHITE BLOOD COUNT (AUTO) 10.7 K/uL (4.8-10.8)
[2019-09-28] MEDS: BUDESONIDE 0.5 MG/2 ML AMPUL.NEB IH SCH ×2 (07:21→20:14)
[2019-09-28] MEDS: IPRATROPIUM BROM 0.5 MG/2.5 ML VIAL.NEB (ATROVENT) INH SCH ×5 (07:21→23:36)
[2019-09-28] MEDS: ALBUTEROL SULFATE 0.083% 2.5 MG/3 ML VIAL.NEB INH SCH ×5 (07:21→23:36)
[2019-09-28 07:29] LABS: INR 1.9 (0.8-1.2); PROTHROMBIN TIME 18.7 SECS (9.5-12.5)
[2019-09-28 08:00] VITALS: BP_SYST 132
[2019-09-28] MEDS: GABAPENTIN 300 MG CAPSULE PO SCH ×2 (08:50→20:59)
[2019-09-28] MEDS: DULoxetine HCL 30 MG CAPSULE.DR (CYMBALTA) PO SCH (08:50)
[2019-09-28] MEDS: CYANOCOBALAMIN 1000 mCg TABLET PO SCH (08:50)
[2019-09-28 11:13] VITALS: BP_SYST 108
[2019-09-28 11:15] VITALS: BP_SYST 147
[2019-09-28] MEDS ORDERED: POTASSIUM CHLORIDE 20 MEQ TAB.PRT.SR PO ONE (11:30)
[2019-09-28 15:09] VITALS: BP_SYST 127
[2019-09-28] MEDS ORDERED: NEPHROVITE, (FOLIC ACID/VITAMIN B COMP W-C 1 TAB) PO ONE (17:15)
[2019-09-28] MEDS: cefTRIAXone 1 GM in D5W 50 ML IV SCH (17:23)
[2019-09-28] MEDS ORDERED: TUBERCULIN,PURIF.PROT.DERIV. 0.1 ML SYR ID ONE (17:30)
[2019-09-28] MEDS ORDERED: WARFARIN SODIUM 6 MG TABLET PO SCH (18:00)
[2019-09-28 20:00] VITALS: BP_SYST 141
[2019-09-29 00:06] VITALS: BP_SYST 143
[2019-09-29] MEDS: IPRATROPIUM BROM 0.5 MG/2.5 ML VIAL.NEB (ATROVENT) INH SCH ×6 (03:00→23:02)
[2019-09-29] MEDS: ALBUTEROL SULFATE 0.083% 2.5 MG/3 ML VIAL.NEB INH SCH ×6 (03:00→23:02)
[2019-09-29] MEDS: LEVOTHYROXINE SODIUM 0.075 MG TABLET PO SCH (06:00)
[2019-09-29 07:53] VITALS: BP_SYST 147
[2019-09-29] MEDS: BUDESONIDE 0.5 MG/2 ML AMPUL.NEB IH SCH ×2 (07:55→19:12)
[2019-09-29 09:03] LABS: INR 1.9 (0.8-1.2)
[2019-09-29] MEDS: DULoxetine HCL 30 MG CAPSULE.DR (CYMBALTA) PO SCH (09:12)
[2019-09-29] MEDS: NEPHROVITE, (FOLIC ACID/VITAMIN B COMP W-C 1 TAB) PO SCH (09:12)
[2019-09-29] MEDS: CYANOCOBALAMIN 1000 mCg TABLET PO SCH (09:12)
[2019-09-29] MEDS: GABAPENTIN 300 MG CAPSULE PO SCH ×2 (09:12→20:19)
[2019-09-29 12:00] VITALS: BP_SYST 158
[2019-09-29 16:00] VITALS: BP_SYST 161
[2019-09-29] MEDS: cefTRIAXone 1 GM in D5W 50 ML IV SCH (17:07)
[2019-09-29] MEDS: WARFARIN SODIUM PO SCH ×2 (17:08)
[2019-09-29] MEDS ORDERED: cloNIDine HCL 0.2 MG TABLET PO PRN (19:00)
[2019-09-29 20:00] VITALS: BP_SYST 156
[2019-09-30 00:30] VITALS: BP_SYST 131
[2019-09-30] MEDS: ALBUTEROL SULFATE 0.083% 2.5 MG/3 ML VIAL.NEB INH SCH ×6 (04:24→23:05)
[2019-09-30] MEDS: IPRATROPIUM BROM 0.5 MG/2.5 ML VIAL.NEB (ATROVENT) INH SCH ×6 (04:24→23:05)
[2019-09-30] MEDS: LEVOTHYROXINE SODIUM 0.075 MG TABLET PO SCH (06:03)
[2019-09-30 07:22] LABS: BASOPHILS % (AUTO) 0.4 % (0.0-2.0); EOSINOPHILS # (AUTO) 0.1 K/uL (0.0-0.4); EOSINOPHILS % (AUTO) 1.4 % (0.0-4.0); HEMATOCRIT 23.3 % (36-48); HEMOGLOBIN 7.3 g/dL (12.0-16.0); LYMPHOCYTES # (AUTO) 2.1 K/uL (1.0-5.5); LYMPHOCYTES % (AUTO) 21.4 % (20.5-51.5); MEAN CORPUSCULAR HEMOGLOBIN 31 pg (27-31); MEAN CORPUSCULAR HGB CONC 31 % (32-36); MEAN CORPUSCULAR VOLUME 97 fL (79.0-98.0); MONOCYTES % (AUTO) 10.2 % (1.7-9.3); NEUTROPHILS # (AUTO) 6.6 K/uL (1.8-7.7); NEUTROPHILS % (AUTO) 66.6 % (40.0-70.0); PLATELET COUNT (AUTO) 275 K/uL (130-430); RED CELL DISTRIBUTION WIDTH 15.7 % (9.0-15.0); WHITE BLOOD COUNT (AUTO) 9.8 K/uL (4.8-10.8)
[2019-09-30 07:29] LABS: PROTHROMBIN TIME 20.1 SECS (9.5-12.5)
[2019-09-30 07:36] LABS: CALCIUM 7.6 mg/dL (8.4-11.0); CREATININE 5.57 mg/dL (0.55-1.30); POTASSIUM 3.8 mmol/L (3.5-5.1)
[2019-09-30 08:00] VITALS: BP_SYST 143
[2019-09-30] MEDS: BUDESONIDE 0.5 MG/2 ML AMPUL.NEB IH SCH ×2 (08:26→19:47)
[2019-09-30] MEDS: GABAPENTIN 300 MG CAPSULE PO SCH ×2 (08:34→21:07)
[2019-09-30] MEDS: CYANOCOBALAMIN 1000 mCg TABLET PO SCH (08:34)
[2019-09-30] MEDS: DULoxetine HCL 30 MG CAPSULE.DR (CYMBALTA) PO SCH (08:34)
[2019-09-30] MEDS: NEPHROVITE, (FOLIC ACID/VITAMIN B COMP W-C 1 TAB) PO SCH (08:34)
[2019-09-30 12:18] VITALS: BP_SYST 153
[2019-09-30 15:07] VITALS: BP_SYST 142
[2019-09-30] MEDS: cefTRIAXone 1 GM in D5W 50 ML IV SCH (17:33)
[2019-09-30] MEDS: EPOETIN ALFA 10,000 UNITS/ML VIAL SUBCUT SCH (17:34)
[2019-09-30] MEDS: WARFARIN SODIUM PO SCH ×2 (17:35)
[2019-09-30 20:00] VITALS: BP_SYST 143
[2019-10-01 00:34] VITALS: BP_SYST 131
[2019-10-01] MEDS: ALBUTEROL SULFATE 0.083% 2.5 MG/3 ML VIAL.NEB INH SCH ×6 (03:00→23:23)
[2019-10-01] MEDS: IPRATROPIUM BROM 0.5 MG/2.5 ML VIAL.NEB (ATROVENT) INH SCH ×6 (03:00→23:23)
[2019-10-01] MEDS: LEVOTHYROXINE SODIUM 0.075 MG TABLET PO SCH (06:37)
[2019-10-01] MEDS: BUDESONIDE 0.5 MG/2 ML AMPUL.NEB IH SCH ×2 (07:39→20:06)
[2019-10-01 07:44] LABS: PROTHROMBIN TIME 20.1 SECS (9.5-12.5)
[2019-10-01 08:58] LABS: BILIRUBIN,URINE NEGATIVE (NEGATIVE); BLOOD, URINE 3+ (NEGATIVE); GLUCOSE,URINE NEGATIVE (NEGATIVE); KETONES,URINE NEGATIVE (NEGATIVE); LEUKOCYTE ESTERASE ,URINE 2+ (NEGATIVE); NITRITE, URINE NEGATIVE (NEGATIVE); PROTEIN URINE 2+ (NEGATIVE); UROBILINOGEN,URINE 0.2 (0.2-1.0)
[2019-10-01 09:13] LABS: COLOR,URINE RED (YELLOW)
[2019-10-01 09:14] LABS: CLARITY/URINE HAZY (CLEAR)
[2019-10-01 09:38] LABS: BACTERIA,URINE MODERATE /HPF (None Seen); RBC,URINE 20-50 /HPF (0-3); WBC,URINE 20-50 /HPF (0-3)
[2019-10-01] MEDS: CYANOCOBALAMIN 1000 mCg TABLET PO SCH (11:07)
[2019-10-01] MEDS: NEPHROVITE, (FOLIC ACID/VITAMIN B COMP W-C 1 TAB) PO SCH (11:07)
[2019-10-01] MEDS: GABAPENTIN 300 MG CAPSULE PO SCH ×2 (11:07→20:26)
[2019-10-01] MEDS: DULoxetine HCL 30 MG CAPSULE.DR (CYMBALTA) PO SCH (11:07)
[2019-10-01 12:00] VITALS: BP_SYST 154
[2019-10-01 16:42] VITALS: BP_SYST 131
[2019-10-01] MEDS: cefTRIAXone 1 GM in D5W 50 ML IV SCH (19:59)
[2019-10-01 20:00] VITALS: BP_SYST 141
[2019-10-01] MEDS: WARFARIN SODIUM PO SCH ×2 (20:02)
[2019-10-01] MEDS: ACETAMINOPHEN 325 MG TABLET PO PRN (20:26)
[2019-10-02] MEDS: IPRATROPIUM BROM 0.5 MG/2.5 ML VIAL.NEB (ATROVENT) INH SCH ×6 (03:00→23:10)
[2019-10-02] MEDS: ALBUTEROL SULFATE 0.083% 2.5 MG/3 ML VIAL.NEB INH SCH ×6 (03:00→23:10)
[2019-10-02] MEDS: LEVOTHYROXINE SODIUM 0.075 MG TABLET PO SCH (06:11)
[2019-10-02] MEDS: BUDESONIDE 0.5 MG/2 ML AMPUL.NEB IH SCH ×2 (06:34→20:05)
[2019-10-02 08:00] VITALS: BP_SYST 142
[2019-10-02 08:48] LABS: INR 2.1 (0.8-1.2); PROTHROMBIN TIME 20.9 SECS (9.5-12.5)
[2019-10-02] MEDS: CYANOCOBALAMIN 1000 mCg TABLET PO SCH (09:20)
[2019-10-02] MEDS: GABAPENTIN 300 MG CAPSULE PO SCH ×2 (09:20→20:17)
[2019-10-02] MEDS: DULoxetine HCL 30 MG CAPSULE.DR (CYMBALTA) PO SCH (09:21)
[2019-10-02] MEDS: NEPHROVITE, (FOLIC ACID/VITAMIN B COMP W-C 1 TAB) PO SCH (09:21)
[2019-10-02 11:23] VITALS: BP_SYST 136
[2019-10-02] MEDS: ACETAMINOPHEN 325 MG TABLET PO PRN ×2 (11:51→18:10)
[2019-10-02] MEDS ORDERED: HEPARIN SODIUM, PORCINE 10,000 UNITS/ 10 ML VIAL MC ONE (12:45)
[2019-10-02 15:26] VITALS: BP_SYST 132
[2019-10-02] MEDS: cefTRIAXone 1 GM in D5W 50 ML IV SCH (16:48)
[2019-10-02] MEDS: EPOETIN ALFA 10,000 UNITS/ML VIAL SUBCUT SCH (16:48)
[2019-10-02] MEDS: WARFARIN SODIUM PO SCH ×2 (17:43)
[2019-10-02 20:00] VITALS: BP_SYST 138
[2019-10-03 01:44] VITALS: BP_SYST 156
[2019-10-03] MEDS: IPRATROPIUM BROM 0.5 MG/2.5 ML VIAL.NEB (ATROVENT) INH SCH ×6 (03:00→23:23)
[2019-10-03] MEDS: ALBUTEROL SULFATE 0.083% 2.5 MG/3 ML VIAL.NEB INH SCH ×6 (03:00→23:23)
[2019-10-03] MEDS: LEVOTHYROXINE SODIUM 0.075 MG TABLET PO SCH (06:28)
[2019-10-03 08:00] VITALS: BP_SYST 116
[2019-10-03] MEDS: BUDESONIDE 0.5 MG/2 ML AMPUL.NEB IH SCH ×2 (08:15→19:58)
[2019-10-03 08:18] LABS: PROTHROMBIN TIME 19.6 SECS (9.5-12.5)
[2019-10-03] MEDS: DULoxetine HCL 30 MG CAPSULE.DR (CYMBALTA) PO SCH (09:00)
[2019-10-03] MEDS: NEPHROVITE, (FOLIC ACID/VITAMIN B COMP W-C 1 TAB) PO SCH (09:00)
[2019-10-03] MEDS: CYANOCOBALAMIN 1000 mCg TABLET PO SCH (09:00)
[2019-10-03] MEDS: GABAPENTIN 300 MG CAPSULE PO SCH ×2 (09:01→21:10)
[2019-10-03 12:28] VITALS: BP_SYST 121
[2019-10-03 16:01] VITALS: BP_SYST 130
[2019-10-03] MEDS: cefTRIAXone 1 GM in D5W 50 ML IV SCH (17:35)
[2019-10-03] MEDS: WARFARIN SODIUM 7.5 MG TABLET PO SCH (17:36)
[2019-10-03 20:00] VITALS: BP_SYST 123
[2019-10-03 22:29] VITALS: BP_SYST 131
[2019-10-04] MEDS: ALBUTEROL SULFATE 0.083% 2.5 MG/3 ML VIAL.NEB INH SCH ×5 (03:00→19:36)
[2019-10-04] MEDS: IPRATROPIUM BROM 0.5 MG/2.5 ML VIAL.NEB (ATROVENT) INH SCH ×5 (03:00→19:37)
[2019-10-04] MEDS: ALBUTEROL SULFATE 0.083% 2.5 MG/3 ML VIAL.NEB INH PRN (05:34)
[2019-10-04] MEDS: IPRATROPIUM BROM 0.5 MG/2.5 ML VIAL.NEB (ATROVENT) INH PRN (05:36)
[2019-10-04] MEDS: LEVOTHYROXINE SODIUM 0.075 MG TABLET PO SCH (06:04)
[2019-10-04] MEDS: BUDESONIDE 0.5 MG/2 ML AMPUL.NEB IH SCH ×2 (07:55→19:36)
[2019-10-04 08:00] VITALS: BP_SYST 139
[2019-10-04 08:16] LABS: INR 1.8 (0.8-1.2); PROTHROMBIN TIME 18.1 SECS (9.5-12.5)
[2019-10-04] MEDS: NEPHROVITE, (FOLIC ACID/VITAMIN B COMP W-C 1 TAB) PO SCH (09:02)
[2019-10-04] MEDS: CYANOCOBALAMIN 1000 mCg TABLET PO SCH (09:02)
[2019-10-04] MEDS: GABAPENTIN 300 MG CAPSULE PO SCH ×2 (09:02→20:09)
[2019-10-04] MEDS: DULoxetine HCL 30 MG CAPSULE.DR (CYMBALTA) PO SCH (09:02)
[2019-10-04 12:00] VITALS: BP_SYST 138
[2019-10-04] MEDS ORDERED: HEPARIN SODIUM,PORCINE 5000 UNITS/ML VIAL IVP ONE (14:30)
[2019-10-04 15:34] VITALS: BP_SYST 139
[2019-10-04 15:34] LABS: HEMATOCRIT 26.4 % (36-48); HEMOGLOBIN 8.3 g/dL (12.0-16.0)
[2019-10-04] MEDS: WARFARIN SODIUM 7.5 MG TABLET PO SCH (17:46)
[2019-10-04] MEDS: EPOETIN ALFA 10,000 UNITS/ML VIAL SUBCUT SCH (17:47)
[2019-10-04 20:00] VITALS: BP_SYST 150
[2019-10-05 00:07] VITALS: BP_SYST 129
[2019-10-05] MEDS: LEVOTHYROXINE SODIUM 0.075 MG TABLET PO SCH (06:33)
[2019-10-05] MEDS: ALBUTEROL SULFATE 0.083% 2.5 MG/3 ML VIAL.NEB INH SCH ×4 (07:18→20:08)
[2019-10-05] MEDS: BUDESONIDE 0.5 MG/2 ML AMPUL.NEB IH SCH ×2 (07:18→20:09)
[2019-10-05] MEDS: IPRATROPIUM BROM 0.5 MG/2.5 ML VIAL.NEB (ATROVENT) INH SCH ×4 (07:18→20:09)
[2019-10-05 08:00] VITALS: BP_SYST 139
[2019-10-05] MEDS: NEPHROVITE, (FOLIC ACID/VITAMIN B COMP W-C 1 TAB) PO SCH (08:21)
[2019-10-05] MEDS: GABAPENTIN 300 MG CAPSULE PO SCH ×2 (08:21→19:58)
[2019-10-05] MEDS: CYANOCOBALAMIN 1000 mCg TABLET PO SCH (08:21)
[2019-10-05] MEDS: DULoxetine HCL 30 MG CAPSULE.DR (CYMBALTA) PO SCH (08:21)
[2019-10-05 08:59] LABS: INR 1.9 (0.8-1.2); PROTHROMBIN TIME 19.3 SECS (9.5-12.5)
[2019-10-05] MEDS ORDERED: FLUCONAZOLE 100 MG TABLET (DIFLUCAN) PO ONE (11:00)
[2019-10-05 11:38] VITALS: BP_SYST 144
[2019-10-05 12:14] VITALS: BP_SYST 144
[2019-10-05] MEDS: WARFARIN SODIUM 7.5 MG TABLET PO SCH (17:18)
[2019-10-05 19:55] VITALS: BP_SYST 144
[2019-10-05 23:29] VITALS: BP_SYST 135
[2019-10-06] MEDS: LEVOTHYROXINE SODIUM 0.075 MG TABLET PO SCH (05:57)
[2019-10-06 07:51] LABS: BASOPHILS % (AUTO) 0.6 % (0.0-2.0); EOSINOPHILS # (AUTO) 0.1 K/uL (0.0-0.4); EOSINOPHILS % (AUTO) 1.7 % (0.0-4.0); HEMATOCRIT 24.4 % (36-48); HEMOGLOBIN 7.6 g/dL (12.0-16.0); LYMPHOCYTES # (AUTO) 1.9 K/uL (1.0-5.5); LYMPHOCYTES % (AUTO) 26.4 % (20.5-51.5); MEAN CORPUSCULAR HEMOGLOBIN 30 pg (27-31); MEAN CORPUSCULAR HGB CONC 31 % (32-36); MEAN CORPUSCULAR VOLUME 96 fL (79.0-98.0); MONOCYTES # (AUTO) 0.5 K/uL (0.0-1.0); MONOCYTES % (AUTO) 7.3 % (1.7-9.3); NEUTROPHILS # (AUTO) 4.5 K/uL (1.8-7.7); PLATELET COUNT (AUTO) 251 K/uL (130-430); RED BLOOD CELL COUNT(AUTO) 2.55 MIL/uL (4.2-6.2); WHITE BLOOD COUNT (AUTO) 7.1 K/uL (4.8-10.8)
[2019-10-06 08:00] VITALS: BP_SYST 152
[2019-10-06] MEDS: BUDESONIDE 0.5 MG/2 ML AMPUL.NEB IH SCH ×2 (08:01→19:49)
[2019-10-06] MEDS: IPRATROPIUM BROM 0.5 MG/2.5 ML VIAL.NEB (ATROVENT) INH SCH ×5 (08:01→23:15)
[2019-10-06] MEDS: ALBUTEROL SULFATE 0.083% 2.5 MG/3 ML VIAL.NEB INH SCH ×5 (08:01→23:15)
[2019-10-06 08:16] LABS: CALCIUM 7.8 mg/dL (8.4-11.0); CREATININE 4.77 mg/dL (0.55-1.30); POTASSIUM 4.4 mmol/L (3.5-5.1)
[2019-10-06] MEDS: FLUCONAZOLE 100 MG TABLET (DIFLUCAN) PO SCH (08:54)
[2019-10-06] MEDS: DULoxetine HCL 30 MG CAPSULE.DR (CYMBALTA) PO SCH (08:54)
[2019-10-06] MEDS: NEPHROVITE, (FOLIC ACID/VITAMIN B COMP W-C 1 TAB) PO SCH (08:54)
[2019-10-06] MEDS: CYANOCOBALAMIN 1000 mCg TABLET PO SCH (08:54)
[2019-10-06] MEDS: GABAPENTIN 300 MG CAPSULE PO SCH ×2 (08:54→20:56)
[2019-10-06] MEDS ORDERED: FLUCONAZOLE 100 MG TABLET (DIFLUCAN) PO SCH (09:00)
[2019-10-06 11:01] LABS: INR 2.1 (0.8-1.2); PROTHROMBIN TIME 20.7 SECS (9.5-12.5)
[2019-10-06 11:20] VITALS: BP_SYST 163
[2019-10-06 14:17] LABS: BILIRUBIN,URINE NEGATIVE (NEGATIVE); BLOOD, URINE 3+ (NEGATIVE); CLARITY/URINE CLEAR (CLEAR); COLOR,URINE YELLOW (YELLOW); GLUCOSE,URINE NEGATIVE (NEGATIVE); KETONES,URINE NEGATIVE (NEGATIVE); LEUKOCYTE ESTERASE ,URINE 1+ (NEGATIVE); NITRITE, URINE NEGATIVE (NEGATIVE); PROTEIN URINE 1+ (NEGATIVE); UROBILINOGEN,URINE 0.2 (0.2-1.0)
[2019-10-06 14:37] LABS: BACTERIA,URINE FEW /HPF (None Seen); MUCUS,URINE 1+ /LPF (None Seen); WBC,URINE 20-50 /HPF (0-3)
[2019-10-06 15:19] VITALS: BP_SYST 159
[2019-10-06] MEDS: WARFARIN SODIUM 7.5 MG TABLET PO SCH (17:13)
[2019-10-06 19:00] VITALS: BP_SYST 150
[2019-10-06 20:00] VITALS: BP_SYST 150
[2019-10-07 00:32] VITALS: BP_SYST 125
[2019-10-07] MEDS: ALBUTEROL SULFATE 0.083% 2.5 MG/3 ML VIAL.NEB INH SCH ×6 (03:00→23:00)
[2019-10-07] MEDS: IPRATROPIUM BROM 0.5 MG/2.5 ML VIAL.NEB (ATROVENT) INH SCH ×6 (03:00→23:00)
[2019-10-07] MEDS: LEVOTHYROXINE SODIUM 0.075 MG TABLET PO SCH (06:48)
[2019-10-07] MEDS: BUDESONIDE 0.5 MG/2 ML AMPUL.NEB IH SCH ×2 (07:13→19:53)
[2019-10-07 08:30] VITALS: BP_SYST 141
[2019-10-07] MEDS: NEPHROVITE, (FOLIC ACID/VITAMIN B COMP W-C 1 TAB) PO SCH (08:36)
[2019-10-07] MEDS: FLUCONAZOLE 100 MG TABLET (DIFLUCAN) PO SCH (08:36)
[2019-10-07] MEDS: GABAPENTIN 300 MG CAPSULE PO SCH ×2 (08:36→20:34)
[2019-10-07] MEDS: DULoxetine HCL 30 MG CAPSULE.DR (CYMBALTA) PO SCH (08:36)
[2019-10-07] MEDS: CYANOCOBALAMIN 1000 mCg TABLET PO SCH (08:37)
[2019-10-07] MEDS ORDERED: HEPARIN SODIUM,PORCINE 5000 UNITS/ML VIAL SUBCUT ONE (09:30)
[2019-10-07 10:50] LABS: INR 2.4 (0.8-1.2); PROTHROMBIN TIME 23.8 SECS (9.5-12.5)
[2019-10-07 12:28] VITALS: BP_SYST 143
[2019-10-07 16:45] VITALS: BP_SYST 137
[2019-10-07] MEDS: EPOETIN ALFA 10,000 UNITS/ML VIAL SUBCUT SCH (16:52)
[2019-10-07] MEDS ORDERED: WARFARIN SODIUM 4 MG TABLET PO ONE (18:00)
[2019-10-07 20:27] VITALS: BP_SYST 148
[2019-10-07] MEDS: ACETAMINOPHEN 325 MG TABLET PO PRN (23:35)
[2019-10-08 00:06] VITALS: BP_SYST 139
[2019-10-08] MEDS: LEVOTHYROXINE SODIUM 0.075 MG TABLET PO SCH (06:50)
[2019-10-08] MEDS: ALBUTEROL SULFATE 0.083% 2.5 MG/3 ML VIAL.NEB INH SCH ×4 (07:21→20:01)
[2019-10-08] MEDS: IPRATROPIUM BROM 0.5 MG/2.5 ML VIAL.NEB (ATROVENT) INH SCH ×4 (07:21→20:01)
[2019-10-08] MEDS: BUDESONIDE 0.5 MG/2 ML AMPUL.NEB IH SCH ×2 (07:21→20:01)
[2019-10-08 07:50] VITALS: BP_SYST 141
[2019-10-08 08:34] LABS: INR 2.3 (0.8-1.2); PROTHROMBIN TIME 22.7 SECS (9.5-12.5)
[2019-10-08] MEDS: FLUCONAZOLE 100 MG TABLET (DIFLUCAN) PO SCH (08:41)
[2019-10-08] MEDS: CYANOCOBALAMIN 1000 mCg TABLET PO SCH (08:46)
[2019-10-08] MEDS: GABAPENTIN 300 MG CAPSULE PO SCH ×2 (08:46→20:14)
[2019-10-08] MEDS: NEPHROVITE, (FOLIC ACID/VITAMIN B COMP W-C 1 TAB) PO SCH (08:46)
[2019-10-08] MEDS: DULoxetine HCL 30 MG CAPSULE.DR (CYMBALTA) PO SCH (08:46)
[2019-10-08 11:37] VITALS: BP_SYST 148
[2019-10-08 15:06] VITALS: BP_SYST 158
[2019-10-08] MEDS ORDERED: WARFARIN SODIUM 5 MG TABLET PO ONE (18:00)
[2019-10-08 20:08] VITALS: BP_SYST 130
[2019-10-09 00:59] VITALS: BP_SYST 150
[2019-10-09] MEDS: LEVOTHYROXINE SODIUM 0.075 MG TABLET PO SCH (06:23)
[2019-10-09] MEDS: ALBUTEROL SULFATE 0.083% 2.5 MG/3 ML VIAL.NEB INH SCH ×5 (07:44→23:15)
[2019-10-09] MEDS: BUDESONIDE 0.5 MG/2 ML AMPUL.NEB IH SCH ×2 (07:44→19:48)
[2019-10-09] MEDS: IPRATROPIUM BROM 0.5 MG/2.5 ML VIAL.NEB (ATROVENT) INH SCH ×5 (07:44→23:15)
[2019-10-09 08:00] VITALS: BP_SYST 130
[2019-10-09] MEDS: GABAPENTIN 300 MG CAPSULE PO SCH ×2 (09:10→22:12)
[2019-10-09] MEDS: FLUCONAZOLE 100 MG TABLET (DIFLUCAN) PO SCH (09:10)
[2019-10-09] MEDS: DULoxetine HCL 30 MG CAPSULE.DR (CYMBALTA) PO SCH (09:10)
[2019-10-09] MEDS: NEPHROVITE, (FOLIC ACID/VITAMIN B COMP W-C 1 TAB) PO SCH (09:10)
[2019-10-09] MEDS: CYANOCOBALAMIN 1000 mCg TABLET PO SCH (09:10)
[2019-10-09 10:05] LABS: PROTHROMBIN TIME 19.9 SECS (9.5-12.5)
[2019-10-09 11:25] VITALS: BP_SYST 130
[2019-10-09 16:00] VITALS: BP_SYST 140
[2019-10-09] MEDS ORDERED: WARFARIN SODIUM 3 MG TABLET PO SCH (18:00)
[2019-10-09] MEDS: EPOETIN ALFA 10,000 UNITS/ML VIAL SUBCUT SCH (18:03)
[2019-10-09 20:00] VITALS: BP_SYST 125
[2019-10-09] MEDS ORDERED: HEPARIN SODIUM,PORCINE 5000 UNITS/ML VIAL IVP ONE (21:00)
[2019-10-10] MEDS: ACETAMINOPHEN 325 MG TABLET PO PRN ×2 (00:18→06:21)
[2019-10-10 01:35] VITALS: BP_SYST 151
[2019-10-10] MEDS: ALBUTEROL SULFATE 0.083% 2.5 MG/3 ML VIAL.NEB INH SCH ×6 (03:00→23:47)
[2019-10-10] MEDS: IPRATROPIUM BROM 0.5 MG/2.5 ML VIAL.NEB (ATROVENT) INH SCH ×6 (03:00→23:47)
[2019-10-10] MEDS: LEVOTHYROXINE SODIUM 0.075 MG TABLET PO SCH (06:21)
[2019-10-10] MEDS: BUDESONIDE 0.5 MG/2 ML AMPUL.NEB IH SCH ×2 (07:46→19:51)
[2019-10-10 07:50] VITALS: BP_SYST 148
[2019-10-10] MEDS: DULoxetine HCL 30 MG CAPSULE.DR (CYMBALTA) PO SCH (09:27)
[2019-10-10] MEDS: FLUCONAZOLE 100 MG TABLET (DIFLUCAN) PO SCH (09:27)
[2019-10-10] MEDS: GABAPENTIN 300 MG CAPSULE PO SCH ×2 (09:27→20:56)
[2019-10-10] MEDS: CYANOCOBALAMIN 1000 mCg TABLET PO SCH (09:27)
[2019-10-10] MEDS: NEPHROVITE, (FOLIC ACID/VITAMIN B COMP W-C 1 TAB) PO SCH (09:27)
[2019-10-10 09:29] LABS: BASOPHILS % (AUTO) 0.5 % (0.0-2.0); EOSINOPHILS # (AUTO) 0.2 K/uL (0.0-0.4); EOSINOPHILS % (AUTO) 1.8 % (0.0-4.0); HEMATOCRIT 27.6 % (36-48); HEMOGLOBIN 8.8 g/dL (12.0-16.0); LYMPHOCYTES # (AUTO) 1.8 K/uL (1.0-5.5); LYMPHOCYTES % (AUTO) 21.1 % (20.5-51.5); MEAN CORPUSCULAR HEMOGLOBIN 31 pg (27-31); MEAN CORPUSCULAR HGB CONC 32 % (32-36); MEAN CORPUSCULAR VOLUME 95 fL (79.0-98.0); MONOCYTES # (AUTO) 0.5 K/uL (0.0-1.0); NEUTROPHILS # (AUTO) 5.9 K/uL (1.8-7.7); NEUTROPHILS % (AUTO) 70.6 % (40.0-70.0); PLATELET COUNT (AUTO) 332 K/uL (130-430); RED BLOOD CELL COUNT(AUTO) 2.89 MIL/uL (4.2-6.2); RED CELL DISTRIBUTION WIDTH 16.2 % (9.0-15.0); WHITE BLOOD COUNT (AUTO) 8.4 K/uL (4.8-10.8)
[2019-10-10 09:35] LABS: INR 1.9 (0.8-1.2); PROTHROMBIN TIME 19.1 SECS (9.5-12.5)
[2019-10-10 12:15] VITALS: BP_SYST 128
[2019-10-10 16:40] VITALS: BP_SYST 104; BP_SYST 136
[2019-10-10] MEDS: WARFARIN SODIUM 6 MG TABLET PO SCH (18:25)
[2019-10-10 20:00] VITALS: BP_SYST 125
[2019-10-11] VITALS: BP_SYST 143
[2019-10-11] MEDS: IPRATROPIUM BROM 0.5 MG/2.5 ML VIAL.NEB (ATROVENT) INH SCH ×5 (03:00→19:35)
[2019-10-11] MEDS: ALBUTEROL SULFATE 0.083% 2.5 MG/3 ML VIAL.NEB INH SCH ×5 (03:00→19:36)
[2019-10-11] MEDS: LEVOTHYROXINE SODIUM 0.075 MG TABLET PO SCH (06:26)
[2019-10-11 07:35] LABS: INR 1.9 (0.8-1.2); PROTHROMBIN TIME 19.2 SECS (9.5-12.5)
[2019-10-11] MEDS: BUDESONIDE 0.5 MG/2 ML AMPUL.NEB IH SCH ×2 (08:15→19:35)
[2019-10-11 08:30] VITALS: BP_SYST 122
[2019-10-11] MEDS: CYANOCOBALAMIN 1000 mCg TABLET PO SCH (09:20)
[2019-10-11] MEDS: GABAPENTIN 300 MG CAPSULE PO SCH ×2 (09:20→20:34)
[2019-10-11] MEDS: DULoxetine HCL 30 MG CAPSULE.DR (CYMBALTA) PO SCH (09:20)
[2019-10-11] MEDS: NEPHROVITE, (FOLIC ACID/VITAMIN B COMP W-C 1 TAB) PO SCH (09:20)
[2019-10-11] MEDS: FLUCONAZOLE 100 MG TABLET (DIFLUCAN) PO SCH (09:26)
[2019-10-11 12:09] VITALS: BP_SYST 145
[2019-10-11 14:35] VITALS: BP_SYST 122
[2019-10-11] MEDS ORDERED: HEPARIN SODIUM,PORCINE 5000 UNITS/ML VIAL MC ONE (15:00)
[2019-10-11 16:11] VITALS: BP_SYST 138
[2019-10-11] MEDS: EPOETIN ALFA 10,000 UNITS/ML VIAL SUBCUT SCH (17:37)
[2019-10-11] MEDS: WARFARIN SODIUM 6 MG TABLET PO SCH (17:38)
[2019-10-11 20:00] VITALS: BP_SYST 129
[2019-10-12 01:11] VITALS: BP_SYST 157
[2019-10-12] MEDS: IPRATROPIUM BROM 0.5 MG/2.5 ML VIAL.NEB (ATROVENT) INH SCH ×5 (03:00→19:41)
[2019-10-12] MEDS: ALBUTEROL SULFATE 0.083% 2.5 MG/3 ML VIAL.NEB INH SCH ×5 (03:00→19:41)
[2019-10-12] MEDS: LEVOTHYROXINE SODIUM 0.075 MG TABLET PO SCH (06:44)
[2019-10-12 07:15] LABS: INR 1.8 (0.8-1.2); PROTHROMBIN TIME 17.7 SECS (9.5-12.5)
[2019-10-12] MEDS: BUDESONIDE 0.5 MG/2 ML AMPUL.NEB IH SCH ×2 (07:17→19:41)
[2019-10-12 08:00] VITALS: BP_SYST 132
[2019-10-12] MEDS: DULoxetine HCL 30 MG CAPSULE.DR (CYMBALTA) PO SCH (08:38)
[2019-10-12] MEDS: NEPHROVITE, (FOLIC ACID/VITAMIN B COMP W-C 1 TAB) PO SCH (08:38)
[2019-10-12] MEDS: CYANOCOBALAMIN 1000 mCg TABLET PO SCH (08:38)
[2019-10-12] MEDS: GABAPENTIN 300 MG CAPSULE PO SCH ×2 (08:38→21:14)
[2019-10-12] MEDS: FLUCONAZOLE 100 MG TABLET (DIFLUCAN) PO SCH (08:38)
[2019-10-12 12:54] VITALS: BP_SYST 145
[2019-10-12 16:38] VITALS: BP_SYST 133
[2019-10-12] MEDS ORDERED: WARFARIN SODIUM 7.5 MG TABLET PO SCH (18:00)
[2019-10-12 20:00] VITALS: BP_SYST 130
[2019-10-13] MEDS: ALBUTEROL SULFATE 0.083% 2.5 MG/3 ML VIAL.NEB INH SCH ×6 (00:07→19:44)
[2019-10-13] MEDS: IPRATROPIUM BROM 0.5 MG/2.5 ML VIAL.NEB (ATROVENT) INH SCH ×6 (00:08→19:44)
[2019-10-13 01:05] VITALS: BP_SYST 141
[2019-10-13] MEDS: LEVOTHYROXINE SODIUM 0.075 MG TABLET PO SCH (06:43)
[2019-10-13] MEDS: BUDESONIDE 0.5 MG/2 ML AMPUL.NEB IH SCH ×2 (07:10→19:44)
[2019-10-13 07:16] LABS: INR 1.8 (0.8-1.2); PROTHROMBIN TIME 17.6 SECS (9.5-12.5)
[2019-10-13 08:29] VITALS: BP_SYST 125
[2019-10-13] MEDS: DULoxetine HCL 30 MG CAPSULE.DR (CYMBALTA) PO SCH (08:32)
[2019-10-13] MEDS: NEPHROVITE, (FOLIC ACID/VITAMIN B COMP W-C 1 TAB) PO SCH (08:32)
[2019-10-13] MEDS: CYANOCOBALAMIN 1000 mCg TABLET PO SCH (08:32)
[2019-10-13] MEDS: GABAPENTIN 300 MG CAPSULE PO SCH ×2 (08:32→20:44)
[2019-10-13 12:07] VITALS: BP_SYST 123
[2019-10-13 15:26] VITALS: BP_SYST 135
[2019-10-13] MEDS: WARFARIN SODIUM 4 MG TABLET PO SCH (17:34)
[2019-10-13 19:55] VITALS: BP_SYST 111
[2019-10-13 20:00] VITALS: BP_SYST 130
[2019-10-14 02:09] VITALS: BP_SYST 134
[2019-10-14] MEDS: LEVOTHYROXINE SODIUM 0.075 MG TABLET PO SCH (06:19)
[2019-10-14] MEDS: BUDESONIDE 0.5 MG/2 ML AMPUL.NEB IH SCH (07:13)
[2019-10-14] MEDS: IPRATROPIUM BROM 0.5 MG/2.5 ML VIAL.NEB (ATROVENT) INH SCH ×3 (07:14→15:22)
[2019-10-14] MEDS: ALBUTEROL SULFATE 0.083% 2.5 MG/3 ML VIAL.NEB INH SCH ×3 (07:14→15:22)
[2019-10-14 07:21] LABS: BASOPHILS % (AUTO) 0.4 % (0.0-2.0); EOSINOPHILS # (AUTO) 0.1 K/uL (0.0-0.4); EOSINOPHILS % (AUTO) 1.2 % (0.0-4.0); HEMATOCRIT 28.7 % (36-48); HEMOGLOBIN 9.1 g/dL (12.0-16.0); LYMPHOCYTES # (AUTO) 2.1 K/uL (1.0-5.5); LYMPHOCYTES % (AUTO) 24.2 % (20.5-51.5); MEAN CORPUSCULAR HEMOGLOBIN 30 pg (27-31); MEAN CORPUSCULAR HGB CONC 32 % (32-36); MEAN CORPUSCULAR VOLUME 95 fL (79.0-98.0); MONOCYTES # (AUTO) 0.6 K/uL (0.0-1.0); MONOCYTES % (AUTO) 7.4 % (1.7-9.3); NEUTROPHILS # (AUTO) 5.7 K/uL (1.8-7.7); NEUTROPHILS % (AUTO) 66.8 % (40.0-70.0); PLATELET COUNT (AUTO) 410 K/uL (130-430); RED BLOOD CELL COUNT(AUTO) 3.02 MIL/uL (4.2-6.2); RED CELL DISTRIBUTION WIDTH 16.1 % (9.0-15.0); WHITE BLOOD COUNT (AUTO) 8.5 K/uL (4.8-10.8)
[2019-10-14 07:42] LABS: INR 2.1 (0.8-1.2); PROTHROMBIN TIME 20.7 SECS (9.5-12.5)
[2019-10-14 08:00] VITALS: BP_SYST 117
[2019-10-14 08:23] LABS: ALBUMIN 2.9 g/dL (3.4-4.8); CALCIUM 8.2 mg/dL (8.4-11.0); CREATININE 4.31 mg/dL (0.55-1.30); PHOSPHORUS 5.8 mg/dL (2.7-4.5); POTASSIUM 5.6 mmol/L (3.5-5.1); TOTAL BILIRUBIN 0.2 mg/dL (0.0-1.0)
[2019-10-14] MEDS: DULoxetine HCL 30 MG CAPSULE.DR (CYMBALTA) PO SCH (08:54)
[2019-10-14] MEDS: GABAPENTIN 300 MG CAPSULE PO SCH (08:54)
[2019-10-14] MEDS: CYANOCOBALAMIN 1000 mCg TABLET PO SCH (08:54)
[2019-10-14] MEDS: NEPHROVITE, (FOLIC ACID/VITAMIN B COMP W-C 1 TAB) PO SCH (08:54)
[2019-10-14 09:37] VITALS: BP_SYST 117
[2019-10-14 12:00] VITALS: BP_SYST 151
[2019-10-14] MEDS ORDERED: HEPARIN SODIUM,PORCINE 5000 UNITS/ML VIAL IVP ONE (12:00)
[2019-10-14] MEDS: ACETAMINOPHEN 325 MG TABLET PO PRN (13:36)
[2019-10-14] MEDS ORDERED: HYDROcodone/ACETAMIN 5-325 MG TAB (NORCO/ VICODIN) PO PRN (15:15)
[2019-10-14 16:07] VITALS: BP_SYST 141
[2019-10-14] MEDS: EPOETIN ALFA 10,000 UNITS/ML VIAL SUBCUT SCH (17:12)
[2019-10-14] MEDS: WARFARIN SODIUM 4 MG TABLET PO SCH (17:19)
== END 2019-10-14 19:47 | DRG 720 ==
LOC: SED 18:20 → SIC 21:49 → STU 09-17 07:27 → SIC 09-17 09:13 → STU 09-20 14:15
PROVIDERS: ADMIT Internal Medicine Hospice and Palliative Medicine; ATTEND Internal Medicine Hospice and Palliative Medicine
PROC: 5A1945Z Respiratory Ventilation, 24-96 Consecutive Hours (ICD-10-PCS; principal; 2019-09-16)
PROC: 02HV33Z Insertion of Infusion Device into Superior Vena Cava, Percutaneous Approach (ICD-10-PCS; 2019-09-17)
PROC: B548ZZA Ultrasonography of Superior Vena Cava, Guidance (ICD-10-PCS; 2019-09-17)
PROC: 02HV33Z Insertion of Infusion Device into Superior Vena Cava, Percutaneous Approach (ICD-10-PCS; 2019-09-21)
PROC: B548ZZA Ultrasonography of Superior Vena Cava, Guidance (ICD-10-PCS; 2019-09-21)
PROC: 5A1D70Z Performance of Urinary Filtration, Intermittent, Less than 6 Hours Per Day (ICD-10-PCS; 2019-09-22)
PROC: 5A1D70Z Performance of Urinary Filtration, Intermittent, Less than 6 Hours Per Day (ICD-10-PCS; 2019-09-23)
PROC: 5A1D70Z Performance of Urinary Filtration, Intermittent, Less than 6 Hours Per Day (ICD-10-PCS; 2019-09-25)
PROC: 5A1D70Z Performance of Urinary Filtration, Intermittent, Less than 6 Hours Per Day (ICD-10-PCS; 2019-09-27)
PROC: 5A1D70Z Performance of Urinary Filtration, Intermittent, Less than 6 Hours Per Day (ICD-10-PCS; 2019-09-30)
PROC: 5A1D70Z Performance of Urinary Filtration, Intermittent, Less than 6 Hours Per Day (ICD-10-PCS; 2019-10-04)
PROC: 5A1D70Z Performance of Urinary Filtration, Intermittent, Less than 6 Hours Per Day (ICD-10-PCS; 2019-10-07)
PROC: 5A1D70Z Performance of Urinary Filtration, Intermittent, Less than 6 Hours Per Day (ICD-10-PCS; 2019-10-09)
PROC: 5A1D70Z Performance of Urinary Filtration, Intermittent, Less than 6 Hours Per Day (ICD-10-PCS; 2019-10-11)
PROC: 5A1D70Z Performance of Urinary Filtration, Intermittent, Less than 6 Hours Per Day (ICD-10-PCS; 2019-10-14)
DX: A41.9 Sepsis, unspecified organism (principal); I26.99 Other pulmonary embolism without acute cor pulmonale; E43 Unspecified severe protein-calorie malnutrition; J96.20 Acute and chronic respiratory failure, unspecified whether with hypoxia or hypercapnia; R65.21 Severe sepsis with septic shock; J15.6 Pneumonia due to other Gram-negative bacteria; N17.9 Acute kidney failure, unspecified; I13.0 Hypertensive heart and chronic kidney disease with heart failure and stage 1 through stage 4 chronic kidney disease, or unspecified chronic kidney disease; I50.9 Heart failure, unspecified; Z93.0 Tracheostomy status; D63.8 Anemia in other chronic diseases classified elsewhere; E03.9 Hypothyroidism, unspecified; E66.2 Morbid (severe) obesity with alveolar hypoventilation; E83.39 Other disorders of phosphorus metabolism; N39.0 Urinary tract infection, site not specified; J44.0 Chronic obstructive pulmonary disease with (acute) lower respiratory infection; N18.9 Chronic kidney disease, unspecified; E83.51 Hypocalcemia; E87.1 Hypo-osmolality and hyponatremia; I82.413 Acute embolism and thrombosis of femoral vein, bilateral; Z86.718 Personal history of other venous thrombosis and embolism; Z68.44 Body mass index [BMI] 60.0-69.9, adult
CPT/HCPCS: 36415; 36600; 71045; 76770; 80048; 80053; 80074; 80202-TC; 81000-TC; 82728; 82803-TC; 82962; 83540-TC; 83550-TC; 83605; 83735-TC; 83880; 83970; 84100-TC; 84443-TC; 84484; 85007; 85018-TC; 85025; 85027; 85610-TC; 85651-TC; 85730-TC; 86140; 87040-TC; 87070-TC; 87081; 87086; 87186-TC; 87205-TC; 90935; 90937; 92610-GN; 93005; 93970; 94003; 94640; 94760; 96365; 96375; 97110-GP; 97112-GP; 97530-GP; 99285; C1751; G0378; J0610; J0690; J0696; J0885; J1030; J1644; J1650; J2001; J2250; J2270; J2405; J2543; J2704; J2765; J3370; J3480; J7030; J7040; J7050; J7060; J7613; J7620; J7626